=== PATIENT | female | born 1950 | race Caucasian/White ===

== ENCOUNTER 2020-03-18 10:05 | Emergency (ER) | payer MEDICARE ==
[~2020-03-18] VITALS: Ht 162.6 cm; Wt 64.0 kg
[2020-03-18 10:50] LABS: CLARITY,URINE SLIGHTLY CLOUDY (Clear); COLOR,URINE YELLOW (Yellow); GLUCOSE, URINE NEGATIVE (Neg); KETONES,URINE NEGATIVE (Neg); LEUKOCYTE ESTERASE ,URINE TRACE (Neg); NITRITES, URINE NEGATIVE (Neg); OCCULT BLOOD,URINE LARGE (Neg); PROTEIN,URINE NEGATIVE (Neg); UA COLLECTION TYPE CLN CATCH MIDSTREAM; UROBILINOGEN,URINE 0.2 E.U/dL (0.2-1.0)
[2020-03-18 10:56] LABS: MUCUS STRANDS MANY /LPF (Neg); SQUAMOUS EPITHELIAL CELL,UR MANY /LPF (FEW)
[2020-03-18 10:56] LABS: BASOPHILS # (AUTO) 0.1 X10'3 (0-0.2); EOSINOPHILS # (AUTO) 0.3 X10'3 (0-0.9); EOSINOPHILS % (AUTO) 2.8 % (0-6); HEMOGLOBIN 13.5 g/dl (12.0-16.0); LYMPHOCYTES # (AUTO) 1.7 X10'3 (1.1-4.8); LYMPHOCYTES % (AUTO) 16.1 % (21-51); MEAN CORPUSCULAR HEMOGLOBIN 32.7 PG (27.0-31.0); MEAN CORPUSCULAR HGB CONC 33.7 g/dL (33.0-36.5); MEAN CORPUSCULAR VOLUME 97.2 FL (78-98); MEAN PLATELET VOLUME 8.9 FL (7.4-10.4); MONOCYTES # (AUTO) 1.3 X10'3 (0-0.9); NEUTROPHILS # (AUTO) 7.4 X10'3 (1.8-7.7); NEUTROPHILS % (AUTO) 68.1 % (42-75); PLATELET COUNT 198 X10'3 (140-440); RED BLOOD COUNT 4.11 X10'6 (4.20-5.60); RED CELL DISTRIBUTION WIDTH 12.5 % (11.5-14.5); WHITE BLOOD COUNT 10.9 X10'3 (4.5-11.0)
[2020-03-18 10:57] LABS: COARSE GRANULAR CAST 0-3 /LPF (NEGATIVE)
[2020-03-18 10:58] LABS: TRANSITIONAL EPI CELLS,URINE FEW /HPF
[2020-03-18 10:59] LABS: RBC,URINE 50-100 /HPF (0-2); WBC,URINE 0-4 /HPF (0-4)
[2020-03-18 11:00] LABS: BACTERIA,URINE FEW /HPF (Neg)
[2020-03-18 11:18] LABS: ALBUMIN 3.3 G/DL (3.4-5.0); ANION GAP 5 (8-16); BLOOD UREA NITROGEN 16 MG/DL (7-18); BUN/CREATININE RATIO 15.2 (6.6-38.0); CALCIUM 9.1 MG/DL (8.5-10.1); CHLORIDE 106 MMOL/L (99-107); CREATININE 1.05 MG/DL (0.40-0.90); GLUCOSE 92 MG/DL (70-104); POTASSIUM 4.8 MMOL/L (3.5-5.1); SODIUM 140 MMOL/L (135-145); TOTAL CARBON DIOXIDE 28.6 MMOL/L (24-32); TROPONIN I < 0.04 NG/ML (0.0-0.05); eGFR 52 ML/MIN
[2020-03-18] MEDS ORDERED: iohexol 350MG/ML 100ml bottle IV ONE (11:38)
--- NOTE | 2020-03-18 12:45 | NUR ---
DR CLIFFORD AT BEDSIDE EXPALINNING ABOUT BLS CLOT .PT HAS PE .DISCUSSING THE POC.PT VITALS STABLE . HR 55 ,SPO2 99%,BP 117/45,R16. PT DECIDED SHE WOULD GO HOME WITH PRX AND F/U WITH PCP FOR ECHO. PT DENIES ANY CONCERN.
[2020-03-18] MEDS ORDERED: APIX5TAB3 PO (13:27)
[2020-03-18 13:51] VITALS: BP 122/64
== END 2020-03-18 14:00 | disposition home or self-care (01) ==
LOC: ER 10:06
DX: I26.99 Other pulmonary embolism without acute cor pulmonale (principal); R07.89 Other chest pain; Z98.890 Other specified postprocedural states; Z79.899 Other long term (current) drug therapy
CPT/HCPCS: 36415; 71275; 74177; 80048; 81001; 83880; 84484; 85025; 93005; 99285; Q9967

== ENCOUNTER 2022-07-21 18:37 | Emergency (ER) | payer MEDICARE ==
[~2022-07-21] VITALS: Ht 162.6 cm; Wt 75.0 kg
[~2022-07-21 18:37] MED LIST: APIX5TAB3 PO
[2022-07-21 19:05] LABS: BASOPHILS % (AUTO) 0.3 % (0-1); EOSINOPHILS # (AUTO) 0.1 X10'3 (0-0.9); EOSINOPHILS % (AUTO) 0.7 % (0-6); HEMATOCRIT 37.7 % (35.0-45.0); HEMOGLOBIN 12.7 g/dl (12.0-16.0); LYMPHOCYTES # (AUTO) 0.6 X10'3 (1.1-4.8); LYMPHOCYTES % (AUTO) 9.4 % (21-51); MEAN CORPUSCULAR HEMOGLOBIN 32.8 PG (27.0-31.0); MEAN CORPUSCULAR HGB CONC 33.8 g/dL (33.0-36.5); MEAN CORPUSCULAR VOLUME 96.9 FL (78-98); MEAN PLATELET VOLUME 8.6 FL (7.4-10.4); MONOCYTES # (AUTO) 0.1 X10'3 (0-0.9); MONOCYTES % (AUTO) 0.9 % (2-12); NEUTROPHILS % (AUTO) 88.7 % (42-75); PLATELET COUNT 194 X10'3 (140-440); RED BLOOD COUNT 3.89 X10'6 (4.20-5.60); RED CELL DISTRIBUTION WIDTH 12.8 % (11.5-14.5); WHITE BLOOD COUNT 6.8 X10'3 (4.5-11.0)
[2022-07-21 19:18] LABS: ALANINE AMINOTRANSFERASE 22 U/L (12-78); ALBUMIN 3.8 G/DL (3.4-5.0); ALBUMIN/GLOBULIN RATIO 1.1 (1.1-1.5); ALKALINE PHOSPHATASE 117 IU/L (46-116); ANION GAP 14 (8-16); ASPARTATE AMINO TRANSFERASE 27 U/L (10-37); BILIRUBIN,TOTAL 1.2 MG/DL (0.1-1.0); BLOOD UREA NITROGEN 24 MG/DL (7-18); BUN/CREATININE RATIO 23.8 (6.6-38.0); CALCIUM 9.1 MG/DL (8.5-10.1); CHLORIDE 104 MMOL/L (99-107); CREATININE 1.01 MG/DL (0.40-0.90); GLUCOSE 117 MG/DL (70-104); POTASSIUM 3.3 MMOL/L (3.5-5.1); SODIUM 136 MMOL/L (135-145); TOTAL CARBON DIOXIDE 17.9 MMOL/L (24-32); TOTAL PROTEIN 7.3 G/DL (6.4-8.2); eGFR 54 ML/MIN
[2022-07-21 19:27] LABS: MAGNESIUM 1.7 MG/DL (1.5-2.4)
[2022-07-21] MEDS ORDERED: normal saline 1000ML IV soln IVB ONE (20:25)
[2022-07-21] MEDS ORDERED: proCHLORperazine 10 MG/2 ml inj IV ONE (20:25)
[2022-07-21] MEDS ORDERED: diazepam inj 5 MG/ML inj. IV ONE (20:25)
[2022-07-21] MEDS ORDERED: ONDA4TAB12 PO (22:58)
[2022-07-21] MEDS ORDERED: MECL-159 PO (22:58)
[2022-07-21] MEDS ORDERED: meclizine 12.5mg tablet PO ONE (23:15)
[2022-07-21] MEDS ORDERED: ondansetron/PF 4mg/2ml inj IV ONE (23:15)
[2022-07-21 23:26] LABS: CLARITY,URINE CLOUDY (Clear); COLOR,URINE YELLOW (Yellow); GLUCOSE, URINE NEGATIVE (Neg); KETONES,URINE >=80 mg/dl (Neg); LEUKOCYTE ESTERASE ,URINE MODERATE (Neg); NITRITES, URINE POSITIVE (Neg); OCCULT BLOOD,URINE LARGE (Neg); PH,URINE 5.5 (4.8-8.0); PROTEIN,URINE 30 mg/dl (Neg)
[2022-07-21 23:35] LABS: UA COLLECTION TYPE CLN CATCH MIDSTREAM
[2022-07-21 23:36] LABS: WBC,URINE TNTC /HPF (0-4)
[2022-07-21 23:37] LABS: BACTERIA,URINE 3+ /HPF (Neg); MUCUS STRANDS FEW /LPF (Neg); RBC,URINE 20-50 /HPF (0-2); SQUAMOUS EPITHELIAL CELL,UR FEW /LPF (FEW); TRANSITIONAL EPI CELLS,URINE MODERATE /HPF
[2022-07-21 23:38] LABS: WBC CLUMPS,URINE FEW /HPF (NEGATIVE); YEAST FEW /HPF (NEGATIVE)
[2022-07-21] MEDS ORDERED: FOSFOMYCIN TROMETHAMINE 3 GM PACKET PO ONE (23:55)
[2022-07-21] MEDS ORDERED: CEPH250T PO (23:56)
[2022-07-22 00:21] VITALS: BP 128/85
== END 2022-07-22 00:23 | disposition home or self-care (01) ==
LOC: ER 18:37
DX: N39.0 Urinary tract infection, site not specified (principal); R42 Dizziness and giddiness; R11.2 Nausea with vomiting, unspecified; R55 Syncope and collapse; R51.9 Headache, unspecified; Z79.01 Long term (current) use of anticoagulants; Z79.899 Other long term (current) drug therapy
CPT/HCPCS: 36415; 71045; 80053; 81001; 83605; 83735; 83880; 84145; 84484; 85025; 87040; 87077; 87088; 87186; 87502; 87503; 93005; 96374; 96375; 99285; J0780; J2405; J3360; J7030; J8597